=== PATIENT | female | born 1945 | race Caucasian/White ===

== ENCOUNTER → 2016-10-20 | Outpatient (CLI) | payer OTHER, BC ==
[~2016-10-20] MED LIST: ACETAMINOPHEN325 M1 PO; ALBUTEROL2.5 MG/31 INH; AMARYL4 MG PO; APAP500 PO; BENADRYL25 MG PO; CALCIUM 600 +1 EAC5 PO; CENTRUM SILVER1 EAC1 PO; CENTRUM SILVER1 EAC3 PO; CENTRUM SILVER1 EAC4 PO; CIPRO250 M1 PO; CIPROFLOXACIN500 M1 PO; COMBIVENT INH; COMBIVENT RESPIM4 GM INH; DELTASONE20 MG PO; ETODOLAC500 MG PO; FLOMAX PO; FLUZONE 2045 MCG/010; GEMFIBROZIL 60600 MG PO; GLUCOPHAGE1000 MG PO; GLUCOPHAGE500 MG PO; HYDROXYZINE HCL25 M1 PO; LORTAB 7.5/5001 TA3 PO; MACROBID 100 M100 M1 PO; MIRALAX255 GM PO; MUCINEX600 MG PO; ONDANSETRON HCL4 M3 PO; OXYCODONE-ACET1 EAC4; PEPCID20 MG PO; PERCOCET 5-3251 EACH PO; PNEUMOVAX25 MCG/0.5; PREDNISONE 10 M10 M1 PO; PREDNISONE 10 M10 MG PO; PRINZIDE 20-121 EACH PO; PROVENTIL INH; ZOFRAN 4 MG ORAL4 M1 DIS; [UNRECOGNIZED DRUG - REMARK]
== END ==
LOC: RAD 12:30
DX: J44.9 Chronic obstructive pulmonary disease, unspecified (principal); I51.7 Cardiomegaly

== ENCOUNTER 2017-01-25 11:56 | Emergency (ER) | payer OTHER, BC ==
[~2017-01-25] VITALS: Ht 172.7 cm; Wt 122.5 kg
[2017-01-25 12:24] LABS: ABSOLUTE NEUTROPHILS 9.5 thou/uL (1.4-8.2); BASOPHILS 0.4 % (0.0-2.0); EOSINOPHILS 0.5 % (0.0-3.0); HEMOGLOBIN 11.7 gm/dL (12.0-15.0); MCH 27.2 pg (26.0-34.0); MCHC 32.6 g/dL (28.0-37.0); MCV 83.3 fL (80.0-100.0); MONOCYTES 2.5 % (1.0-8.0); PLATELET COUNT 400 thou/uL (150-400); POLYS 87.6 % (36.0-66.0); RBC 4.32 mil/uL (4.20-5.00); RDW 15.9 % (10.5-14.5); WBC 10.8 thou/uL (4.0-11.0)
[2017-01-25] MEDS ORDERED: AMLODIPINE BESY10 MG PO (12:28)
[2017-01-25 12:29] LABS: CREATININE 1.2 mg/dL (0.6-1.0); POTASSIUM 4.6 mmol/L (3.5-5.1)
[2017-01-25] MEDS ORDERED: HYDROCODONE-APA1 TA1 PO (12:29)
[2017-01-25] MEDS ORDERED: LEVALBUTER1.25 MG/0. INH (12:29)
[2017-01-25 12:33] LABS: DIRECT BILIRUBIN 0.1 mg/dL (<0.1-0.3); MANUAL DIFF NO; TOTAL BILIRUBIN 0.5 mg/dL (<0.1-1.0); TOTAL PROTEIN 8.8 g/dL (6.4-8.2)
[2017-01-25 13:02] LABS: URINE BILIRUBIN NEGATIVE (Negative); URINE BLOOD 1+ (Negative); URINE COLOR YELLOW; URINE GLUCOSE-RANDOM* NEGATIVE (Negative); URINE KETONES TRACE (Negative); URINE NITRITE NEGATIVE (Negative); URINE PROTEIN (DIPSTICK) 1+ (Negative); URINE SPECIFIC GRAVITY >= 1.030 (1.003-1.035); URINE UROBILINOGEN 0.2 E.U./dl (0.2-1.0)
[2017-01-25] MEDS ORDERED: ZOFRAN ODT4 MG PO (13:07)
[2017-01-25 13:15] LABS: CASTS None Seen /LPF (None Seen); SQUAMOUS 0-3 Few /LPF (0-3)
[2017-01-25 13:17] LABS: AMORPHOUS URATES Moderate /LPF (None Seen); BACTERIA 1-9 Few /HPF (None Seen); URINE RBC 3-10 Few /HPF (0-2); URINE WBC None Seen /HPF (0-5)
[2017-01-25 14:04] VITALS: BP 165/73
== END 2017-01-25 14:07 | disposition home or self-care (01) ==
LOC: ER 11:56
PROVIDERS: Emergency Medicine
DX: R11.2 Nausea with vomiting, unspecified (principal); R10.9 Unspecified abdominal pain; Z90.13 Acquired absence of bilateral breasts and nipples; Z90.49 Acquired absence of other specified parts of digestive tract; I10 Essential (primary) hypertension; E78.5 Hyperlipidemia, unspecified; E11.9 Type 2 diabetes mellitus without complications; J44.9 Chronic obstructive pulmonary disease, unspecified; Z88.1 Allergy status to other antibiotic agents; Z91.013 Allergy to seafood; Z91.040 Latex allergy status; Z88.8 Allergy status to other drugs, medicaments and biological substances; Z91.048 Other nonmedicinal substance allergy status; Z91.018 Allergy to other foods; Z91.041 Radiographic dye allergy status; F17.210 Nicotine dependence, cigarettes, uncomplicated; F10.99 Alcohol use, unspecified with unspecified alcohol-induced disorder

== ENCOUNTER → 2017-10-13 | Outpatient (CLI) | payer OTHER, BC ==
[~2017-10-13] MED LIST changes: +AMLODIPINE BESY10 MG PO; +HYDROCODONE-APA1 TA1 PO; +LEVALBUTER1.25 MG/0. INH; +ZOFRAN ODT4 MG PO
== END ==
LOC: RAD 13:49
DX: Z01.811 Encounter for preprocedural respiratory examination (principal); J44.9 Chronic obstructive pulmonary disease, unspecified; G95.29 Other cord compression

== ENCOUNTER → 2019-08-13 | Outpatient (CLI) | payer OTHER, BC | LOC: RAD 10:43 | DX: J44.9 Chronic obstructive pulmonary disease, unspecified (principal); I11.9 Hypertensive heart disease without heart failure; J98.4 Other disorders of lung; Z88.8 Allergy status to other drugs, medicaments and biological substances ==

== ENCOUNTER 2019-10-04 15:54 | Inpatient (IN) | payer OTHER, BC ==
[~2019-10-04] VITALS: Ht 177.8 cm; Wt 125.9 kg
[2019-10-04 15:56] VITALS: BP 138/63
[2019-10-04] MEDS ORDERED: METOPROLOL SUCC50 MG PO (16:53)
[2019-10-04] MEDS ORDERED: DILTIAZEM ER180 M2 PO (16:54)
[2019-10-04] MEDS ORDERED: ELIQUIS5 MG PO (16:55)
[2019-10-04] MEDS ORDERED: LEVALBUTEROL TA15 GM INH (16:56)
[2019-10-04] MEDS ORDERED: TRELEGY ELLIPT1 EACH INH (16:57)
[2019-10-04 17:14] LABS: ABSOLUTE NEUTROPHILS 8.3 thou/uL (1.4-8.2); BASOPHILS 0.5 % (0.0-2.0); HEMATOCRIT 37.4 % (37.0-47.0); HEMOGLOBIN 11.8 gm/dL (12.0-15.0); LYMPHOCYTES 13.8 % (24.0-44.0); MCH 27.4 pg (26.0-34.0); MCHC 31.5 g/dL (28.0-37.0); PLATELET COUNT 405 thou/uL (150-400); POLYS 73.7 % (36.0-66.0); RDW 15.8 % (10.5-14.5); WBC 11.2 thou/uL (4.0-11.0)
[2019-10-04 17:22] LABS: ANION GAP 8 mmol/L (7-16); BUN 26 mg/dL (7-18); CALCIUM 10.5 mg/dL (8.5-10.1); CHLORIDE 98 mmol/L (98-107); CO2 31 mmol/L (21-32); GLUCOSE 66 mg/dL (74-106); POTASSIUM 4.4 mmol/L (3.5-5.1); SODIUM 137 mmol/L (136-145)
[2019-10-04 17:31] LABS: TROPONIN-I <0.06 ng/mL (<0.06)
[2019-10-04 20:42] VITALS: BP 186/76
[2019-10-04 21:20] VITALS: BP 152/75
[2019-10-04 21:30] VITALS: BP 185/103
[2019-10-04 21:45] VITALS: BP 185/103
[2019-10-05 03:44] VITALS: BP 160/100
[2019-10-05 07:20] VITALS: BP 148/75
[2019-10-05 11:12] VITALS: BP 177/79
--- NOTE | 2019-10-05 11:51 | EKG ---
[address] [place] [address] ELECTROCARDIOGRAM REPORT Name: ZARA INMANFLOR Stevens Room #: 358-P ADM IN M.R.#: [id number] Admission: 10/04/19 Attend Phys: Lane Pierce MD Discharge: Date of : 45 Report #: [id number] THIS REPORT FOR: //name// [facility] ED Test Date: 2019-10-04 Test Time: 16:35:29 Pat Name: LON INMAN Department: Room: 358 Gender: F Bone Cooking Operator: CHACE : 1945 Requested By: Jordi Juares Order Number: [id number] MD: Roby Angela Measurements Intervals Viola Rate: 111 P: RI: QRS: 44 QRSD: 84 T: -78 QT: 368 QTc: 500 Interpretive Statements Atrial fibrillation Borderline T abnormalities, diffuse leads Prolonged QT interval Compared to ECG 05/12/2013 09:30:33 Atrial fibrillation has replaced sinus rhythm Nonspecific T wave abnormality is present Electronically Signed On 10-05-2019 11:50:47 SPREADER BOX OPERATOR by Roby Angela [email or web address] <ELECTRONICALLY SIGNED> By: Roby Angela MD, [facility] 10/05/19 [id number] Roby Angela MD, [facility] /EPI
[2019-10-05 13:36] VITALS: BP 142/67
[2019-10-05 15:15] VITALS: BP 138/79
--- NOTE | 2019-10-05 16:44 | NUR ---
pt is A&OX3, PT is continuing o2 4-5 L/MIN/NC, and breathing treatment, pt's vs are stable, but pt has SOB with activities, pt gets up to used BSC, pt denies pain at this time.pulmonary DR has seeing pt, new order received.
[2019-10-05 19:09] VITALS: BP 154/85
[2019-10-06 03:48] VITALS: BP 151/83
[2019-10-06 04:17] LABS: HEMOGLOBIN 12.2 gm/dL (12.0-15.0); MCH 27.3 pg (26.0-34.0); MCHC 31.4 g/dL (28.0-37.0); MCV 86.9 fL (80.0-100.0); RBC 4.49 mil/uL (4.20-5.00); RDW 15.6 % (10.5-14.5); WBC 16.9 thou/uL (4.0-11.0)
[2019-10-06 04:51] LABS: CALCIUM 10.4 mg/dL (8.5-10.1); CREATININE 1.1 mg/dL (0.6-1.0)
--- NOTE | 2019-10-06 08:17 | NUR ---
PT MAKING PROGRESS TOWARDS GOALS. NOTED PT IS HAVING LESS OBSERVABLE SOA WHEN TALKING COMPARED TO WHEN SHE WAS ADMITTED. NOTED O2 AT 4-5L PER NC VERSUS 6-7 WHEN ADMITTED. NON PRODUCTIVE MILDLY HARSH COUGH NOTED.
[2019-10-06 09:03] VITALS: BP 169/82
[2019-10-06 15:37] VITALS: BP 152/69
--- NOTE | 2019-10-06 17:57 | NUR ---
pt is A&OX3, PT is continuing IV ABX and o2 5L/MIN/NC, pt 's SOB has improved, pt gets up to chair, pt's vs and o2sat are stable, pt denies pain at this time.
[2019-10-07 05:26] VITALS: BP 150/75
[2019-10-07 06:24] LABS: HEMATOCRIT 37.9 % (37.0-47.0); HEMOGLOBIN 12.1 gm/dL (12.0-15.0); MCH 27.5 pg (26.0-34.0); MCV 86.2 fL (80.0-100.0); RBC 4.4 mil/uL (4.20-5.00); RDW 15.5 % (10.5-14.5); WBC 17.1 thou/uL (4.0-11.0)
[2019-10-07 06:37] LABS: CALCIUM 10.3 mg/dL (8.5-10.1); CREATININE 1.3 mg/dL (0.6-1.0); POTASSIUM 4.7 mmol/L (3.5-5.1)
--- NOTE | 2019-10-07 06:45 | NUR ---
Pt. stated she slept intermittently which is not unusual for her and she slept in the recliner chair. O2 at 5L/NC and she does get short of breath with exertion. Voiding per bedside commode and gets up on her own with steady gait. Denies any pain or discomfort at this time. Making progress towards care plan goals.
[2019-10-07 07:46] VITALS: BP 139/70
[2019-10-07 16:00] VITALS: BP 159/72
--- NOTE | 2019-10-07 16:25 | NUR ---
PT is A&OX3, PT is continuing iv abx , o2 5L/MIN/NC, PT's SOB has improved with activities, pt's vs and o2sat are stable , pt gets up to chair , pt denies pain at this time.
--- NOTE | 2019-10-07 16:31 | NUR ---
INITIAL ASSESSMENT: SW reviewed chart and opened case due to length of stay. Discussed with nursing and attending physician. Pt is currently on IV abx and IV steroids. Therapy ordered to evaluate pt for discharge needs. SW met with pt at bedside. Introduced role of SW. Pt is alert/orientated x 4. Pt reports she lives at home with her sister. 3 steps to enter the home. No steps inside. There is a ramp in front of the house. Pt uses a rollator walker. Pt is normally on 5L continuous O2. Home O2 provided by [facility]. No hx of services or post-acute placement. Pt's PCP is Dr. Martinez. Pt's plan is for pt to return home when medically stable. SW is following to assist as needed with discharge planning.
[2019-10-07 20:49] VITALS: BP 160/97
[2019-10-08 00:33] VITALS: BP 168/70
[2019-10-08 04:05] VITALS: BP 121/67
--- NOTE | 2019-10-08 06:16 | NUR ---
Pt. slept better last night in the recliner chair. O2 at 5L/HF and has shortness of breath with exertion. Denies any pain or concern at this time. Making progress towards care plan goals.
[2019-10-08 07:09] LABS: HEMATOCRIT 39.5 % (37.0-47.0); HEMOGLOBIN 12.7 gm/dL (12.0-15.0); MCH 27.4 pg (26.0-34.0); MCHC 32.1 g/dL (28.0-37.0); MCV 85.2 fL (80.0-100.0); PLATELET COUNT 527 thou/uL (150-400); RBC 4.64 mil/uL (4.20-5.00); RDW 15.5 % (10.5-14.5); WBC 17.1 thou/uL (4.0-11.0)
[2019-10-08 07:19] LABS: CREATININE 1.2 mg/dL (0.6-1.0); POTASSIUM 4.6 mmol/L (3.5-5.1)
[2019-10-08 07:54] VITALS: BP 148/77
[2019-10-08 08:12] LABS: ABSOLUTE NEUTROPHILS 15.9 thou/uL (1.4-8.2); PLATELET ESTIMATE INCREASED
[2019-10-08 08:13] LABS: ANISOCYTOSIS SLIGHT
[2019-10-08 15:06] VITALS: BP 158/72
--- NOTE | 2019-10-08 15:37 | NUR ---
DISCHARGE NOTE: SW reveiwed chart and spoke with nursing and attending physician. Pt is medically stable for discharge home today. Recommendation made for pt to have HH services. GILBERTO met with pt at bedside to discuss discharge plan. Pt declines need for HH services. Pt states that her sister is 12 yrs younger than she and is able to assist as needed. Pt's sister will provide transportation home. GILBERTO updated nursing and attending physician. No additional SW needs identified at this time, but is available to assist should needs arise.
[2019-10-08 16:00] VITALS: BP 123/81
[2019-10-08] MEDS ORDERED: RAYOS5 MG PO (16:27)
[2019-10-08] MEDS ORDERED: COLACE 100 MG100 MG PO (16:27)
[2019-10-08] MEDS ORDERED: LEVAQUIN 750 M750 MG PO (16:27)
--- NOTE | 2019-10-08 16:35 | NUR ---
pt is A&OX3, PT's SOB and caughing have improved, pt is continuing o2 5L/MIN/NC, PT's vs and o2sat are stable, pt gets up to walk in her room with walker, pt denies pain and n/v , pt may DC to home with [facility] today.
[2019-10-08 17:09] VITALS: BP 158/72
--- NOTE | 2019-10-08 20:29 | NUR ---
RN received order to DC home with HH, PT has 1800pm IV ABX , RN HAS GIVING DC TEACHING TO PT AND PT'S SISITER, BOTH UNDERSTAND WELL, TELLING PT TO CALL SW FOR HOME HEALTH SERVICE, BECAUSE PT REFUSED TODAY.PT 'S SISTER TRANSMISSION DESIGN ENGINEER PT TO GO HOME AT 2000PM.
--- NOTE | 2019-10-09 10:48 | NUR ---
SW received call from pt's sisterTanisha ([phone]) requesting HH services. Pt had declined yesterday afternoon, but pt and sister are now wanting HH services. SW confirmed pt's home address and phone number. Options for HH agencies discussed. No preference voiced. SW sent HH referral and orders to [facility]. Notified liaison. SW is available to assist should additional needs arise.
== END 2019-10-08 20:00 | disposition home health service (06) | DRG 193 ==
LOC: ER 15:54 → EROBS 20:09 → 3W 20:09
PROVIDERS: Emergency Medicine; Hospitalist; Internal Medicine Pulmonary Disease; ADMIT Internal Medicine
DX: J18.9 Pneumonia, unspecified organism (principal); J96.21 Acute and chronic respiratory failure with hypoxia; J44.1 Chronic obstructive pulmonary disease with (acute) exacerbation; J44.0 Chronic obstructive pulmonary disease with (acute) lower respiratory infection; I10 Essential (primary) hypertension; E07.9 Disorder of thyroid, unspecified; G47.33 Obstructive sleep apnea (adult) (pediatric); G31.84 Mild cognitive impairment of uncertain or unknown etiology; I48.0 Paroxysmal atrial fibrillation; E78.00 Pure hypercholesterolemia, unspecified; E11.9 Type 2 diabetes mellitus without complications; Z88.8 Allergy status to other drugs, medicaments and biological substances; Z88.6 Allergy status to analgesic agent; Z88.1 Allergy status to other antibiotic agents; Z90.13 Acquired absence of bilateral breasts and nipples; Z90.49 Acquired absence of other specified parts of digestive tract; Z87.442 Personal history of urinary calculi; Z91.041 Radiographic dye allergy status; Z91.040 Latex allergy status; Z91.013 Allergy to seafood; Z87.891 Personal history of nicotine dependence; Z80.8 Family history of malignant neoplasm of other organs or systems; Z83.3 Family history of diabetes mellitus; Z85.3 Personal history of malignant neoplasm of breast; Z82.49 Family history of ischemic heart disease and other diseases of the circulatory system; Z99.81 Dependence on supplemental oxygen
CPT/HCPCS: 10879

== ENCOUNTER → 2019-11-19 | Outpatient (CLI) | payer OTHER, BC ==
[~2019-11-19] MED LIST changes: +COLACE 100 MG100 MG PO; +DILTIAZEM ER180 M2 PO; +ELIQUIS5 MG PO; +LEVALBUTEROL TA15 GM INH; +LEVAQUIN 750 M750 MG PO; +METOPROLOL SUCC50 MG PO; +RAYOS5 MG PO; +TRELEGY ELLIPT1 EACH INH
== END ==
LOC: SJCVC 14:58
DX: I48.0 Paroxysmal atrial fibrillation (principal); I10 Essential (primary) hypertension; J43.8 Other emphysema; E11.9 Type 2 diabetes mellitus without complications; Z79.84 Long term (current) use of oral hypoglycemic drugs; Z79.899 Other long term (current) drug therapy

== ENCOUNTER → 2020-05-26 | Outpatient (CLI) | payer OTHER, BC | LOC: SJCVC 14:51 | PROVIDERS: ATTEND Internal Medicine | DX: I48.0 Paroxysmal atrial fibrillation (principal); R94.31 Abnormal electrocardiogram [ECG] [EKG]; E78.5 Hyperlipidemia, unspecified; I10 Essential (primary) hypertension; Z79.899 Other long term (current) drug therapy; Z87.891 Personal history of nicotine dependence ==

== ENCOUNTER → 2020-06-26 | Outpatient (CLI) | payer OTHER, BC | LOC: SJCVCIMAG 09:38 | PROVIDERS: ATTEND Internal Medicine | DX: I48.0 Paroxysmal atrial fibrillation (principal); I10 Essential (primary) hypertension; E11.9 Type 2 diabetes mellitus without complications; Z79.899 Other long term (current) drug therapy; Z87.891 Personal history of nicotine dependence ==

== ENCOUNTER → 2021-07-20 | Outpatient (CLI) | payer OTHER, BC | LOC: SJCVC 15:11 | PROVIDERS: ATTEND Internal Medicine | DX: R94.31 Abnormal electrocardiogram [ECG] [EKG] (principal); I48.21 Permanent atrial fibrillation; I10 Essential (primary) hypertension; E78.00 Pure hypercholesterolemia, unspecified; E11.9 Type 2 diabetes mellitus without complications; E78.5 Hyperlipidemia, unspecified; I48.0 Paroxysmal atrial fibrillation; J44.9 Chronic obstructive pulmonary disease, unspecified; E66.9 Obesity, unspecified; G47.30 Sleep apnea, unspecified; Z87.891 Personal history of nicotine dependence; Z79.84 Long term (current) use of oral hypoglycemic drugs; Z79.899 Other long term (current) drug therapy; Z88.8 Allergy status to other drugs, medicaments and biological substances ==

== ENCOUNTER → 2021-09-14 | Outpatient (CLI) | payer OTHER, BC | LOC: RAD 09:48 | PROVIDERS: ATTEND Pediatrics | DX: J44.9 Chronic obstructive pulmonary disease, unspecified (principal); R06.00 Dyspnea, unspecified ==